=== PATIENT | female | born 1965 | race Hispanic/Latino ===

== ENCOUNTER 2017-06-30 19:03 | Observation (INO) | payer SELFPAY ==
[2017-06-30 19:41] LABS: #Eosinphils 0.3 thou/uL (0.0-0.7); #Lymphocytes 2.6 thou/uL (1.20-3.40); #Monocytes 0.5 thou/uL (0.11-0.59); #Neutrophils 3.5 thou/uL (1.40-6.50); %Basophils 0.3 % (0.0-1.0); %Monocytes 7.1 % (0.0-10.0); Hematocrit 42.6 % (36.0-47.0); Mean Platelet Volume 10.4 fL (7.4-10.4); Red Blood Cell (RBC) Count 4.75 mill/uL (4.20-5.40); White Blood Cell (WBC) Count 6.9 thou/uL (4.8-10.8)
[2017-06-30 19:49] LABS: PTT 31.8 SEC (22.9-36.1); Prothrombin Time 13.2 SEC (12.0-14.7)
[2017-06-30] MEDS ORDERED: Nitroglycerin 0.4 MG TAB (25 Tab Bottle) ONE (19:50)
--- NOTE | 2017-06-30 19:57 | RAD ---
AP CHEST: History: Sharp pain in chest for two weeks. FINDINGS: The lungs are well aerated. No evidence of active intrathoracic disease is seen. No evidence of effu sions, pneumonia, or pneumothorax seen. IMPRESSION: Unremarkable AP chest. POS: [facility]
[2017-06-30 20:05] LABS: ALT (SGPT) 86 U/L (8-55); AST (SGOT) 59 U/L (5-34); Alkaline Phosphatase 107 U/L (40-150); Anion Gap 14 mmol/L (10-20); BUN (Urea Nitrogen) 12 mg/dL (9.8-20.1); Bilirubin, Total 0.7 mg/dL (0.2-1.2); CK (CPK) 139 U/L (29-168); Calc. Creatinine Clearance 0 mL/min (70-130); Calcium 9.1 mg/dL (7.8-10.44); Carbon Dioxide 23 mmol/L (22-29); Chloride 105 mmol/L (98-107); Estimated GFR-MDRD 83; Globulin 3.6 g/dL (2.4-3.5); Lipase 27 U/L (8-78); Protein, Total 7.7 g/dL (6.0-8.3)
[2017-06-30 20:09] LABS: Troponin I Less than 0.010 ng/mL (< 0.028)
[2017-06-30] MEDS ORDERED: Ondansetron HCl/PF 4 MG/2 ML Vial ONE (21:06)
[2017-06-30] MEDS ORDERED: Morphine 2 MG/ML SYRINGE ONE (21:06)
[2017-06-30 23:20] LABS: Troponin I Less than 0.010 ng/mL (< 0.028)
[2017-06-30] MEDS ORDERED: Milk Of Magnesia 30 ML UDCUP PO PRN (23:47)
[2017-06-30] MEDS ORDERED: Mag-Al 1200 mg/1200 mg/30 ML UDCUP PO PRN (23:47)
[2017-06-30] MEDS ORDERED: Zolpidem Tartrate 5 MG TAB PO PRN (23:47)
[2017-06-30] MEDS ORDERED: Loperamide HCl 2 MG CAP PO PRN (23:47)
[2017-06-30] MEDS ORDERED: Ondansetron HCl/PF 4 MG/2 ML Vial IVP PRN (23:47)
[2017-06-30] MEDS ORDERED: Senokot 8.6 MG TAB PO PRN (23:47)
[2017-06-30] MEDS ORDERED: Acetaminophen 325 MG TAB PO PRN (23:47)
[2017-06-30] MEDS ORDERED: Ondansetron ODT 4 MG TAB PO PRN (23:47)
[2017-06-30] MEDS ORDERED: PROVENTIL INHALER 6.7 G (200 INHALATIONS) INH PRN (23:50)
[2017-06-30] MEDS ORDERED: Potassium Chloride 20 MEQ TAB PO SCH (23:59)
[2017-07-01] MEDS: HYDROcodone/Acetaminophen 5/325 mg Tablet PO PRN ×2 (00:26→13:09)
[2017-07-01 00:57] VITALS: BMI 41.4
[2017-07-01] MEDS ORDERED: Regadenoson 0.4 MG/5 ML SYRINGE ONE (01:13)
--- NOTE | 2017-07-01 01:23 | HP ---
PRIMARY CARE PHYSICIAN: [facility]. REASON FOR ADMISSION: Chest pain. HISTORY OF PRESENT ILLNESS: A 52-year-old female with a history of hypertension who came t o emergency room for evaluation of chest pain. She reports that chest pain is ongoing for the last 2 weeks which is on and off, 5/10 in intensity, sometime last for minutes sometime last for several hours. There is no specific aggravating or relieving factor. She describes pain on the left side a s well as substernal area which gets worse sometimes when she lies down, she feels pressure sensatio n. She denies any burning discomfort. She denies any burping sensation. She denies any epigastric pain. She denies any relation of chest pain with food, respiration or activity. With these symptoms, she presented to the emergency room. In the emergency room, patient had negati ve D-dimer, her EKG was unremarkable. All routine workup for cardiac workup in the emergency room c maria a back normal. This patient never had any cardiac related testing and that is why ER physician de cided to keep this patient in the hospital for observation to rule out acute coronary syndrome. PAST MEDICAL HISTORY: The patient reports that she has history of hypertension. She is not taking any medication. At this point she has asthma, but she is not using any inhalers. PAST SURGICAL HISTORY: Hernia repair, cholecystectomy. PAST PSYCHIATRIC HISTORY: Anxiety and depression, but not specific medication. The patient does re port that she has history of suicidal attempt about 7 years ago. SOCIAL HISTORY: The patient is teaching in elementary school. No history of smoking, but she drink s alcohol socially. She denies any other illicit drug abuse. FAMILY HISTORY: Hypertension, heart disease, and stroke runs among several family members. The pat berenice reports that her mother is recently ill with terminal condition. ALLERGIES: No known drug allergies. CURRENT HOME MEDICATIONS: Prinzide 10/12.5 one tablet p.o. daily. REVIEW OF SYSTEMS: The following complete review of systems was negative, unless otherwise mentione d in the HPI or below: Constitutional: Weight loss or gain, ability to conduct usual activities. Skin: Rash, itching. Eyes: Double vision, pain. ENT/Mouth: Nose bleeding, neck stiffness, pain, tenderness. Cardiovascular: Palpitations, dyspnea on exertion, orthopnea. Respiratory: Shortness of breath, wheezing, cough, hemoptysis, fever or night sweats. Gastrointestinal: Poor appetite, abdominal pain, heartburn, nausea, vomiting, constipation, or diar antony. Genitourinary: Urgency, frequency, dysuria, nocturia. Musculoskeletal: Pain, swelling. Neurologic/Psychiatric: Anxiety, depression. Allergy/Immunologic: Skin rash, bleeding tendency. Please see my HPI for pertinent positives and negatives. All other review of systems reviewed and n egative except as mentioned in the HPI. EMERGENCY ROOM COURSE: The patient is given morphine 2 mg and nitroglycerin sublingual 3 times, Zof ran 4 mg, IV fluid 1 liter and aspirin 324 mg. PHYSICAL EXAMINATION: VITAL SIGNS: On arrival, blood pressure 143/101, pulse 75, respiratory rate 19, temperature 98.8, s aturation 97% on room air, weight 86.1 kilograms. GENERAL: The patient is currently alert, awake, in no acute distress. HEENT: Head: Normocephalic, atraumatic. Eyes: Pupils round, reactive to light. Extraocular musc les intact. ENT: Oropharynx within normal limits. Moist mucous membranes. No oral lesions. No p haryngeal erythema, no exudate. NECK: Supple. Range of motion is normal. No meningeal signs of irritation. LUNGS: Clear to auscultation without any rhonchi or rales. CARDIAC: S1, S2 regular without any murmur. ABDOMEN: Soft and benign without any tenderness. EXTREMITIES: No edema. NEUROLOGIC: Nonfocal examination. SIGNIFICANT LABORATORY DATA: CBC: WBC 6.9, hemoglobin 14.7, platelet 154. INR 1.0, D-dimer less t xiao 0.27. BMP: Sodium 139, potassium 3.3, chloride 105, carbon dioxide 23, BUN 12, creatinine 0.74 , glucose 143, calcium 9.1. LFT: AST 59, ALT 86, alkaline phosphatase 107, albumin 4.1, lipase 27. Cardiac enzymes negative x2. ASSESSMENT AND PLAN/IMPRESSION: 1. Chest pain. The patient's chest pain description is atypical. She has 2 weeks history of inter mittent chest pain. Her D-dimer is negative and she has extremely unlikely thromboembolic disorder and in this way we ruled out that possibility. I am suspecting underlying acid reflux and that is w hy I will start with Pepcid 20 mg p.o. b.i.d. Underlying cardiac etiology needs to be excluded. Cu rrently, EKG is normal. Cardiac enzymes negative. In this way, we already ruled out acute coronary syndrome to rule out underlying ischemia. We will perform exercise Cardiolite stress test tomorrow morning, we will keep her n.p.o. after midnight. Meanwhile, we will continue with aspirin 325 mg p .o. daily, nitropatch q.8 hourly if blood pressure permits. Healthy lifestyle measures discussed wi th the patient. 2. Hypokalemia. We will give her potassium chloride 20 mEq p.o. one time dose. 3. Transaminitis, likely related with fatty liver, but I will check hepatitis profile tomorrow morn ing. 4. Hypertension. We will monitor patient's blood pressure while in hospital and will prescribe lis inopril with hydrochlorothiazide one tablet daily. 5. Asthma, mildly intermittent. We will prescribe Ventolin inhaler or ProAir inhaler while in the hospital as needed basis. 6. Deep venous thrombosis prophylaxis not needed because we are expecting discharge in 24 hours. 7. Gastrointestinal prophylaxis, Pepcid 20 mg p.o. b.i.d. 8. Code status: The patient is FULL CODE. She does not have any surrogate decision maker. Disposition plan based on stress test result.
[2017-07-01 02:05] LABS: Troponin I Less than 0.010 ng/mL (< 0.028)
[2017-07-01] MEDS ORDERED: Nitroglycerin 2% Ointment 1 INCH/1 GM Packet TOP SCH (06:00)
[2017-07-01] MEDS ORDERED: Famotidine 20 MG TAB PO SCH (09:00)
[2017-07-01] MEDS ORDERED: Aspirin 325 MG TAB PO SCH (09:00)
--- NOTE | 2017-07-01 10:53 | NM ---
CARDIAC SPECT: CLINICAL HISTORY: 52-year-old female with chest pain, hypertension, family history of coronary artery disease. TECHNIQUE: A stress-only myocardial perfusion scan was performed following the intravenous administration of 33 mCi technetium-99m sestamibi. Pharmacologic stress with Lexiscan was monitored and interpreted by Catrachito Rouse NP. FINDINGS: Homogeneous tracer distribution is seen in the myocardial segments on the post stress images. GATED SPECT LVEF: 75%. WALL MOTION EXAM: Normal. IMPRESSION: Normal post stress myocardial perfusion scan. POS: [facility]
[2017-07-01 12:03] VITALS: BP 137/78; TEMP 98.2
--- NOTE | 2017-07-02 06:21 | DIS ---
DISCHARGE DISPOSITION: Home. FOLLOWUP: Follow up with primary care physician at [facility] in 1 week. A base met in 1 week is recommended. Primary care physician is advised to follow. The patient was seen and examined on the day of discharge. BRIEF HOSPITAL COURSE: The patient is a 52-year-old female with hypertension who presented to the e mergency room with chest discomfort. Please refer to the history and physical dated 06/30/2017 by Janice De Leon for further details. The patient was admitted to the hospital with a diagnosis of chest discomfort, rule out acute anderson ry syndrome. Her serial cardiac enzymes were normal. She underwent exercise Cardiolite stress test that was negative for reversible ischemia. There were no wall motion abnormalities. Ejection frac tion was calculated at 75%. She also had hypokalemia with potassium of 3.3 that has been replaced. Repeat labs in 1 week is recommended. Primary care physician is advised to follow up. SIGNIFICANT LABORATORY DATA: 1. Fasting lipid showed cholesterol 119, LDL 67, triglyceride 102. 2. TSH 2.4. 3. AST 59, ALT 86, potassium 3.3. 4. CBC showed WBC of 6.9 with hemoglobin 14.7. 5. Acute hepatitis profile was negative. FINAL DIAGNOSES: 1. Chest discomfort. 2. Negative Cardiolite stress test. 3. Hypokalemia. 4. Abnormal liver function tests, suspected secondary to fatty liver. 5. Hypertension. 6. Mild intermittent asthma. 7. Morbid obesity with a BMI 41.5. 8. Chronic kidney disease stage 2. Plan of care was discussed with the patient. She stated understanding.
== END 2017-07-01 13:27 | disposition home or self-care (01) ==
LOC: ERS 19:03 → 2SW 21:11
PROVIDERS: ADMIT Internal Medicine; ATTEND Internal Medicine
DX: R07.89 Other chest pain (principal); E87.6 Hypokalemia; R94.5 Abnormal results of liver function studies; J45.909 Unspecified asthma, uncomplicated; I12.9 Hypertensive chronic kidney disease with stage 1 through stage 4 chronic kidney disease, or unspecified chronic kidney disease; N18.2 Chronic kidney disease, stage 2 (mild); E66.01 Morbid (severe) obesity due to excess calories; Z68.41 Body mass index [BMI] 40.0-44.9, adult; Z88.6 Allergy status to analgesic agent; Z79.899 Other long term (current) drug therapy; Z90.49 Acquired absence of other specified parts of digestive tract; Z98.890 Other specified postprocedural states; Z91.5 Personal history of self-harm
CPT/HCPCS: 36415; 71010; 78452; 80053; 80061; 80074; 82553; 83690; 84443; 84484; 85025; 85379; 85610; 85730; 93005; 93017; 94760; 96360; 96361; 96374; 96375; A9500; G0378; J2270; J2405; J2785

== ENCOUNTER 2018-01-21 22:31 | Emergency (ER) | payer SELFPAY | END 2018-01-22 00:22 | disposition home or self-care (01) | LOC: ERS 22:31 | DX: T63.441A Toxic effect of venom of bees, accidental (unintentional), initial encounter (principal); L50.9 Urticaria, unspecified; I10 Essential (primary) hypertension; J45.909 Unspecified asthma, uncomplicated; F32.9 Major depressive disorder, single episode, unspecified; Z79.899 Other long term (current) drug therapy | CPT/HCPCS: 99282 ==

== ENCOUNTER 2019-01-03 21:05 | Emergency (ER) | payer SELFPAY ==
[2019-01-03] MEDS ORDERED: predniSONE 20 MG TAB ONE (23:08)
== END 2019-01-03 23:10 | disposition home or self-care (01) ==
LOC: ERS 21:05
DX: T78.40XA Allergy, unspecified, initial encounter (principal); I10 Essential (primary) hypertension; J45.909 Unspecified asthma, uncomplicated; F32.9 Major depressive disorder, single episode, unspecified
CPT/HCPCS: 99282; J7512

== ENCOUNTER 2020-02-26 03:30 | Emergency (ER) | payer BC, OTHER ==
[2020-02-27 11:46] LABS: SARS-CoV-2 MS2 Positive; SARS-CoV-2 N Gene Negative; SARS-CoV-2 S Gene Negative; SARS-CoV-2 orf1ab Negative
== END 2020-02-26 04:38 | disposition home or self-care (01) ==
LOC: ERS 03:30
DX: M79.10 Myalgia, unspecified site (principal); Z20.828 Contact with and (suspected) exposure to other viral communicable diseases
CPT/HCPCS: 87635; 99283; U0003

== ENCOUNTER 2021-07-18 17:38 | Emergency (ER) | payer BC ==
[2021-07-18 18:16] LABS: #Eosinphils 0.4 thou/uL (0.0-0.7); #Lymphocytes 2.6 thou/uL (1.20-3.40); #Monocytes 0.6 thou/uL (0.11-0.59); #Neutrophils 3.2 thou/uL (1.40-6.50); %Basophils 0.4 % (0.0-1.0); %Eosinophils 5.5 % (0.0-10.0); %Lymphocytes 38.6 % (21.0-51.0); %Monocytes 9.1 % (0.0-10.0); %Neutrophils 46.4 % (42.0-75.0); Hemoglobin 14.1 g/dL (12.0-16.0); Mean Corpuscular HGB CONC 34.5 g/dL (32.0-36.0); Mean Corpuscular Hemoglobin 31.3 pg (27.0-31.0); Mean Corpuscular Volume 90.8 fL (78.0-98.0); Mean Platelet Volume 10.6 fL (7.4-10.4); Platelet Count 139 thou/uL (130-400); RBC Distribution Width 11.5 % (11.5-14.5); White Blood Cell (WBC) Count 6.8 thou/uL (4.8-10.8)
[2021-07-18 18:38] LABS: ALT (SGPT) 65 U/L (8-55); AST (SGOT) 52 U/L (5-34); Albumin 3.9 g/dL (3.5-5.0); Alkaline Phosphatase 119 U/L (40-110); Anion Gap 13 mmol/L (10-20); BUN (Urea Nitrogen) 18 mg/dL (9.8-20.1); Bilirubin, Total 0.6 mg/dL (0.2-1.2); Calc. Creatinine Clearance 0 mL/min (70-130); Calcium 9.1 mg/dL (7.8-10.44); Carbon Dioxide 25 mmol/L (22-29); Chloride 105 mmol/L (98-107); Globulin 3.4 g/dL (2.4-3.5); Glucose 149 mg/dL (70-105); Potassium 3.5 mmol/L (3.5-5.1); Protein, Total 7.3 g/dL (6.0-8.3); Sodium 139 mmol/L (136-145)
[2021-07-18 19:04] LABS: Bacteria/HPF None Seen HPF (None Seen); Bilirubin Negative (Negative); Blood, Urine Negative (Negative); Clarity Clear (Clear); Glucose, Urine (Dipstick) Normal (Negative); Ketone, Urine Negative (Negative); Leukocyte 25 Leu/uL (Negative); Nitrite Negative (Negative); Protein, Urine (Dipstick) 10 mg/dL (Neg-Trace); RBC/HPF 0-3 HPF (0-3); pH, Urine 6.5 (5.0-9.0)
== END 2021-07-18 20:09 | disposition home or self-care (01) ==
LOC: ERS 17:38
DX: F43.9 Reaction to severe stress, unspecified (principal); R53.1 Weakness; N93.9 Abnormal uterine and vaginal bleeding, unspecified; R42 Dizziness and giddiness; I10 Essential (primary) hypertension; E78.5 Hyperlipidemia, unspecified; Z79.899 Other long term (current) drug therapy
CPT/HCPCS: 36415; 80053; 81003; 81015; 84484; 85025; 93005

== ENCOUNTER 2022-09-17 16:33 | Emergency (ER) | payer BC ==
[2022-09-17 19:18] LABS: #Eosinphils 0.2 thou/uL (0.0-0.7); #Lymphocytes 1.8 thou/uL (1.20-3.40); #Monocytes 0.7 thou/uL (0.11-0.59); #Neutrophils 3.1 thou/uL (1.40-6.50); %Basophils 0.2 % (0.0-1.0); %Eosinophils 3.4 % (0.0-10.0); %Lymphocytes 31.1 % (21.0-51.0); %Monocytes 11.5 % (0.0-10.0); %Neutrophils 53.9 % (42.0-75.0); Hemoglobin 15.3 g/dL (12.0-16.0); Mean Corpuscular HGB CONC 34.2 g/dL (32.0-36.0); Mean Corpuscular Hemoglobin 31.1 pg (27.0-31.0); Mean Corpuscular Volume 90.9 fl (78.0-98.0); Mean Platelet Volume 11.1 fL (7.4-10.4); Platelet Count 134 10x3/uL (130-400); RBC Distribution Width 11.8 % (11.5-14.5); Red Blood Cell (RBC) Count 4.93 mill/uL (4.20-5.40); White Blood Cell (WBC) Count 5.7 10x3/uL (4.8-10.8)
[2022-09-17 19:30] LABS: Bilirubin Negative (Negative); Blood, Urine Negative (Negative); Clarity Clear (Clear); Glucose, Urine (Dipstick) Normal (Negative); Ketone, Urine Negative (Negative); Leukocyte Negative Leu/uL (Negative); Nitrite Negative (Negative); Protein, Urine (Dipstick) Negative (Neg-Trace); Specific Gravity, Urine 1.015 (1.002-1.036); Urobilinogen Normal mg/dL (Less than 2); pH, Urine 5.5 (5.0-9.0)
[2022-09-17 19:40] LABS: ALT (SGPT) 83 U/L (8-55); AST (SGOT) 81 U/L (5-34); Albumin 4.5 g/dL (3.5-5.0); Alkaline Phosphatase 125 U/L (40-110); Anion Gap 12 mmol/L (10-20); BUN (Urea Nitrogen) 11 mg/dL (9.8-20.1); Bilirubin, Total 0.9 mg/dL (0.2-1.2); Calc. Creatinine Clearance 0 mL/min (70-130); Calcium 9.4 mg/dL (7.8-10.44); Carbon Dioxide 27 mmol/L (22-29); Chloride 104 mmol/L (98-107); Estimated GFR 100; Globulin 3.4 g/dL (2.4-3.5); Glucose 111 mg/dL (70-105); Potassium 3.7 mmol/L (3.5-5.1); Protein, Total 7.9 g/dL (6.0-8.3); Sodium 139 mmol/L (136-145)
== END 2022-09-17 20:40 | disposition home or self-care (01) ==
LOC: ERS 16:33
DX: K43.9 Ventral hernia without obstruction or gangrene (principal); I10 Essential (primary) hypertension; E78.5 Hyperlipidemia, unspecified; Z79.899 Other long term (current) drug therapy
CPT/HCPCS: 36415; 80053; 81003; 83690; 85025; 99284

== ENCOUNTER 2022-09-26 07:51 | Outpatient (CLI) | payer BC ==
[2022-09-26] MEDS ORDERED: Iopamidol-370 76% 500 ML 1 ML ONE (15:01)
== END 2022-09-26 07:52 | disposition home or self-care (01) ==
LOC: BICCT 07:51
PROVIDERS: ATTEND Specialist
DX: R10.9 Unspecified abdominal pain (principal)
CPT/HCPCS: 74177; 82565; Q9967